=== PATIENT | female | born 1955 | race Caucasian/White ===

== ENCOUNTER 2016-10-26 17:12 | Emergency (ER) | payer OTHER ==
[~2016-10-26] VITALS: Ht 157.5 cm; Wt 76.0 kg
[~2016-10-26 17:12] MED LIST: ALBU8.5H5 INH; CEFD300C2 PO; CLON2TAB PO; GABA300C10 PO; HYDR-3307 PO; PRED50TA PO; TIOT18CA INH
[2016-10-26] MEDS ORDERED: SODIUM CHLORIDE 0.9% 1,000 ML IV ONE (18:04)
[2016-10-26] MEDS ORDERED: PHEN30CA2 PO (18:15)
[2016-10-26] MEDS ORDERED: METH500T97 PO (18:15)
[2016-10-26] MEDS ORDERED: ONDANSETRON 2MG/ML, 2ML ONE (18:17)
[2016-10-26] MEDS ORDERED: IBUPROFEN 200 MG TABLET PO ONE (18:30)
[2016-10-26] MEDS ORDERED: SODIUM CHLORIDE FLUSH 10ML SYR IVF ONE (18:30)
[2016-10-26] MEDS ORDERED: ONDANSETRON 2MG/ML, 2ML IVP ONE (18:30)
[2016-10-26] MEDS ORDERED: SODIUM CHLORIDE 0.9% 1,000ML IVBOLUS ONE (18:30)
[2016-10-26 18:32] LABS: BLOOD UREA NITROGEN 17 mg/dL (7-18)
[2016-10-26] MEDS ORDERED: IBUPROFEN 200 MG TABLET ONE (18:32)
[2016-10-26 18:38] LABS: ASPARTATE AMINO TRANSFERASE 13 U/L (15-37)
[2016-10-26 18:39] LABS: IS PT STATUS REG ER OR PRE ER? YES
[2016-10-26 19:35] VITALS: BP 130/80
== END 2016-10-26 20:00 | disposition home or self-care (01) ==
LOC: ED 19:57
DX: R53.1 Weakness (principal); R06.02 Shortness of breath; F12.10 Cannabis abuse, uncomplicated; Z87.891 Personal history of nicotine dependence; Z87.01 Personal history of pneumonia (recurrent)
CPT/HCPCS: 36415; 71010; 80053; 84484; 85025; 93005; 96361; 96374; 99285; J2405; J7030

== ENCOUNTER 2017-02-19 04:48 | Emergency (ER) | payer OTHER ==
[~2017-02-19] VITALS: Ht 157.5 cm; Wt 79.5 kg
[~2017-02-19 04:48] MED LIST changes: -CEFD300C2 PO; +CEFD300C37 PO; +METH500T97 PO; +PHEN30CA2 PO
[2017-02-19 04:49] VITALS: BP 150/88
== END 2017-02-19 07:45 | disposition home or self-care (01) ==
LOC: ED 05:25
DX: S49.91XA Unspecified injury of right shoulder and upper arm, initial encounter (principal); Z90.710 Acquired absence of both cervix and uterus; X58.XXXA Exposure to other specified factors, initial encounter; Y93.89 Activity, other specified; Y92.009 Unspecified place in unspecified non-institutional (private) residence as the place of occurrence of the external cause; Y99.8 Other external cause status
CPT/HCPCS: 99283; Q0177

== ENCOUNTER 2017-03-15 11:50 | Emergency (ER) | payer SELFPAY ==
[~2017-03-15] VITALS: Ht 157.5 cm; Wt 79.1 kg
[2017-03-15 11:51] VITALS: BP 126/82
[2017-03-15] MEDS ORDERED: DIPHENHYDRAMINE 25 MG CAPSULE PO ONE (13:00)
[2017-03-15] MEDS ORDERED: DIPHENHYDRAMINE 25 MG CAPSULE ONE (13:00)
[2017-03-15 13:33] LABS: HEMATOCRIT 43.1 % (34.6-47.8); HEMOGLOBIN 14.5 g/dL (11.7-16.4); WHITE BLOOD COUNT 4.8 x10^3/uL (3.4-10)
[2017-03-15 13:40] LABS: ASPARTATE AMINO TRANSFERASE 12 U/L (15-37); BLOOD UREA NITROGEN 15 mg/dL (7-18)
== END 2017-03-15 14:24 | disposition home or self-care (01) ==
LOC: ED 14:18
DX: L25.9 Unspecified contact dermatitis, unspecified cause (principal); B35.4 Tinea corporis; Z90.710 Acquired absence of both cervix and uterus; Z88.2 Allergy status to sulfonamides
CPT/HCPCS: 36415; 80053; 85025; 99284; J7512

== ENCOUNTER 2019-11-28 11:39 | Outpatient (CLI) | payer MEDICARE, MEDICAID ==
[~2019-11-28 11:39] MED LIST changes: +HYDR-3246 PO; -HYDR-3307 PO; -PHEN30CA2 PO; +PHEN30CA3 PO
[2019-11-28] MEDS ORDERED: TRAZ50TA66 PO (12:17)
[2019-11-28] MEDS ORDERED: CELE100C PO (12:17)
[2019-11-28] MEDS ORDERED: PANT40TA5 PO (12:17)
[2019-11-28] MEDS ORDERED: TIZA4TAB2 PO (12:17)
[2019-11-28] MEDS ORDERED: DIAZ5TAB4 PO (12:17)
[2019-12-02] MEDS ORDERED: FENTANYL PF 250 MCG/5ML ONE (08:53)
[2019-12-02] MEDS ORDERED: MIDAZOLAM 1 MG/ML, 2ML ONE (08:53)
== END 2019-11-28 23:59 | disposition home or self-care (01) ==
LOC: STAR 11:39
PROVIDERS: ATTEND Surgery
DX: Z01.818 Encounter for other preprocedural examination (principal); Z11.59 Encounter for screening for other viral diseases
CPT/HCPCS: 93005; U0001

== ENCOUNTER 2019-12-02 07:47 | Day surgery (SDC) | payer MEDICARE, MEDICAID ==
[~2019-12-02] VITALS: Ht 157.5 cm; Wt 73.0 kg
[~2019-12-02 07:47] MED LIST changes: +CELE100C PO; +DIAZ5TAB4 PO; +PANT40TA5 PO; +TIZA4TAB2 PO; +TRAZ50TA66 PO
[2019-12-02 09:07] VITALS: BP 110/66
[2019-12-02] MEDS ORDERED: LACTATED RINGERS 1,000 ML IV SCH (09:32)
[2019-12-02] MEDS ORDERED: CHLORHEXIDINE 15 ML UDC ONE (09:36)
[2019-12-02] MEDS ORDERED: ISOSULFAN BLUE 10 MG/ML, 5ML IV ONE (10:16)
[2019-12-02] MEDS ORDERED: BUPIVACAINE/PF 0.25% ONE (10:16)
[2019-12-02] MEDS ORDERED: MIDAZOLAM 1 MG/ML, 2ML ONE (10:29)
[2019-12-02] MEDS ORDERED: SUCCINYLCHOLINE 20 MG/ML, 10ML ONE (10:29)
[2019-12-02] MEDS ORDERED: FENTANYL PF 100 MCG/2ML ONE ×2 (10:29→11:19)
[2019-12-02] MEDS ORDERED: PROPOFOL 10 MG/ML, 20ML ONE (10:29)
[2019-12-02] MEDS ORDERED: CEFAZOLIN 1,000 MG ONE (10:29)
[2019-12-02] MEDS ORDERED: DEXAMETHASONE 4 MG/ML, 1ML ONE (10:29)
[2019-12-02] MEDS ORDERED: ROCURONIUM 10MG/ML,5ML ONE (10:29)
[2019-12-02] MEDS ORDERED: KETOROLAC 30 MG/1 ML ONE ×2 (10:29→11:19)
[2019-12-02] MEDS ORDERED: SUGAMMADEX 200 MG/2 ML IVPush ONE (10:29)
[2019-12-02] MEDS ORDERED: ONDANSETRON 2MG/ML, 2ML ONE (10:29)
[2019-12-02] MEDS ORDERED: PROMETHAZINE 25 MG/ML, 1ML IV PRN (11:00)
[2019-12-02] MEDS ORDERED: DIAZEPAM 5 MG/ML, 2ML IV PRN ×2 (11:00)
[2019-12-02] MEDS ORDERED: LABETALOL 5MG/ML, 20ML IV PRN (11:00)
[2019-12-02] MEDS ORDERED: METOCLOPRAMIDE 5 MG/ML, 2ML IV PRN (11:00)
[2019-12-02] MEDS ORDERED: HYDROmorphone 1 MG/ML, 1ML INJ IV PRN (11:00)
[2019-12-02] MEDS ORDERED: ALBUTEROL SULFATE 2.5 MG/3 ML NPPB PRN (11:00)
[2019-12-02] MEDS ORDERED: hydrALAzine 20 MG/ML, 1ML IV PRN (11:00)
[2019-12-02] MEDS ORDERED: MEPERIDINE/PF 25MG/0.5ML IVPush PRN (11:00)
[2019-12-02] MEDS ORDERED: ONDANSETRON 2MG/ML, 2ML IVPush PRN (11:00)
[2019-12-02] MEDS ORDERED: KETOROLAC 30 MG/1 ML IV PRN (11:00)
[2019-12-02] MEDS ORDERED: OXYcodone 5 MG/5 ML ORAL.SOL UDC ONE (11:19)
[2019-12-02] MEDS: FENTANYL PF 100 MCG/2ML IV PRN ×3 (11:22→11:39)
[2019-12-02] MEDS: OXYcodone 5 MG/5 ML ORAL.SOL UDC PO PRN ×2 (11:24→13:11)
[2019-12-02] MEDS ORDERED: HYDROmorphone 1 MG/ML, 1ML INJ ONE (11:44)
== END 2019-12-02 15:26 | disposition home or self-care (01) ==
LOC: OUT 07:47 → EDSTATUS 10:30 → OUT 15:26
PROVIDERS: ATTEND Surgery
DX: C50.111 Malignant neoplasm of central portion of right female breast (principal); C77.3 Secondary and unspecified malignant neoplasm of axilla and upper limb lymph nodes; F32.9 Major depressive disorder, single episode, unspecified; F41.9 Anxiety disorder, unspecified; Z17.0 Estrogen receptor positive status [ER+]; Z79.891 Long term (current) use of opiate analgesic; Z79.899 Other long term (current) drug therapy; Z88.2 Allergy status to sulfonamides; Z90.710 Acquired absence of both cervix and uterus; Z98.890 Other specified postprocedural states; Z80.3 Family history of malignant neoplasm of breast; Z82.49 Family history of ischemic heart disease and other diseases of the circulatory system; Z82.3 Family history of stroke; Z80.42 Family history of malignant neoplasm of prostate; Z80.8 Family history of malignant neoplasm of other organs or systems
CPT/HCPCS: 19301; 38525; 38792; 76098; 88307; A9541; J0330; J0690; J1100; J1170; J1885; J2250; J2405; J2704; J3010; J3490; J7120; A9552

== ENCOUNTER 2019-12-13 07:46 | Outpatient (CLI) | payer MEDICAID, MEDICARE | END 2019-12-13 23:59 | disposition home or self-care (01) | LOC: ROC 07:46 | PROVIDERS: ATTEND Radiology Radiation Oncology | DX: Z08 Encounter for follow-up examination after completed treatment for malignant neoplasm (principal); C50.511 Malignant neoplasm of lower-outer quadrant of right female breast; C50.111 Malignant neoplasm of central portion of right female breast; F41.9 Anxiety disorder, unspecified; F32.9 Major depressive disorder, single episode, unspecified; Z90.710 Acquired absence of both cervix and uterus | CPT/HCPCS: 99214; G0463 ==

== ENCOUNTER → 2019-12-27 | Outpatient (CLI) | payer MEDICARE | END | disposition home or self-care (01) | LOC: CFH 10:31 | PROVIDERS: ATTEND Internal Medicine Hematology & Oncology | DX: C50.111 Malignant neoplasm of central portion of right female breast (principal); M81.0 Age-related osteoporosis without current pathological fracture | CPT/HCPCS: 77080 ==